=== PATIENT | female | born 1995 ===

== ENCOUNTER 2023-07-19 14:30 | Outpatient (RCR) | payer OTHER | END 2023-07-29 | disposition home or self-care (01) | LOC: MKS.ESL.OT | DX: M25.541 Pain in joints of right hand (principal); M25.542 Pain in joints of left hand ==

== ENCOUNTER 2023-08-15 11:15 | Outpatient (RCR) | payer OTHER | END 2023-08-29 | disposition home or self-care (01) | LOC: MKS.ESL.OT | DX: M25.541 Pain in joints of right hand (principal); M25.542 Pain in joints of left hand ==